=== PATIENT | male | born 1985 ===

== ENCOUNTER 2023-02-28 06:38 | Outpatient (CLI) | payer OTHER | END 2023-02-28 06:40 | disposition home or self-care (01) | LOC: LAB 06:38 | PROVIDERS: ATTEND Internal Medicine Hematology & Oncology | DX: D50.8 Other iron deficiency anemias (principal); I10 Essential (primary) hypertension; R74.02 Elevation of levels of lactic acid dehydrogenase [LDH]; K76.89 Other specified diseases of liver; D68.61 Antiphospholipid syndrome; E72.12 Methylenetetrahydrofolate reductase deficiency; C25.9 Malignant neoplasm of pancreas, unspecified; R97.8 Other abnormal tumor markers; I26.99 Other pulmonary embolism without acute cor pulmonale; E78.2 Mixed hyperlipidemia; G47.33 Obstructive sleep apnea (adult) (pediatric) ==

== ENCOUNTER 2023-06-18 07:42 | Outpatient (CLI) | payer OTHER | END 2023-06-18 07:43 | disposition home or self-care (01) | LOC: LAB 07:42 | PROVIDERS: ATTEND Internal Medicine Hematology & Oncology | DX: I26.99 Other pulmonary embolism without acute cor pulmonale (principal); E78.2 Mixed hyperlipidemia; G47.33 Obstructive sleep apnea (adult) (pediatric) ==

== ENCOUNTER → 2023-06-19 | Outpatient (CLI) | payer OTHER | END | disposition home or self-care (01) | LOC: TOM 08:49 | PROVIDERS: ATTEND Internal Medicine Hematology & Oncology | DX: D68.61 Antiphospholipid syndrome (principal); E72.12 Methylenetetrahydrofolate reductase deficiency; I26.99 Other pulmonary embolism without acute cor pulmonale; E78.2 Mixed hyperlipidemia | CPT/HCPCS: 71270; Q9965 ==

== ENCOUNTER → 2024-01-14 11:03 | Outpatient (CLI) | payer OTHER ==
[2024-01-14 12:10] LABS: HEMATOCRIT 42.1 % (39.0-48.0); HEMOGLOBIN 14.7 g/dL (13-16.00); MEAN CELL VOLUME 84.8 fL (80.0-100.00); MEAN CORPUSCULAR HEMOGLOBIN 29.6 pg (27.00-32.0); MEAN CORPUSCULAR HGB CONC 34.9 g/dl (32.0-36.0); PLATELET COUNT 290 K/uL (150-450); RED BLOOD COUNT 4.96 M/uL (4.00-6.00); RED CELL DISTRIBUTION WIDTH 13.3 % (11.5-14.5)
[2024-01-14 12:50] LABS: ALBUMIN 4.4 gm/dL (3.4-5.0); BILIRUBIN TOTAL 0.78 mg/dL (0.3-1.2); CALCIUM 10.1 mg/dL (8.5-10.1); CREATININE SERUM 1.02 mg/dL (0.70-1.30); GFR 81.31; GLOBULINA 3.2 G/DL (2.4-3.5); POTASSIUM 3.82 mEq/L (3.5-5.1); TOTAL PROTEIN 7.6 gm/dL (6.4-8.2)
[2024-01-14 12:59] LABS: MANUAL PLATELET COUNT 450
[2024-01-14 13:01] LABS: PLATELET ESTIMATE NORMAL (NORMAL)
[2024-01-14 13:20] LABS: FOLIC ACID > 20.00 ng/ml (4.78-20)
== END | disposition home or self-care (01) ==
LOC: LAB 11:03
PROVIDERS: ATTEND Internal Medicine Hematology & Oncology
DX: D50.8 Other iron deficiency anemias (principal); I10 Essential (primary) hypertension; R74.02 Elevation of levels of lactic acid dehydrogenase [LDH]; K76.89 Other specified diseases of liver; D51.8 Other vitamin B12 deficiency anemias; D68.59 Other primary thrombophilia; E72.11 Homocystinuria

== ENCOUNTER 2024-07-08 09:38 | Outpatient (CLI) | payer OTHER ==
[2024-07-08 10:26] LABS: HEMATOCRIT 38.1 % (39.0-48.0); HEMOGLOBIN 13.3 g/dL (13-16.00); MEAN CELL VOLUME 84.8 fL (80.0-100.00); MEAN CORPUSCULAR HEMOGLOBIN 29.5 pg (27.00-32.0); MEAN CORPUSCULAR HGB CONC 34.8 g/dl (32.0-36.0); PLATELET COUNT 233 K/uL (150-450); RED BLOOD COUNT 4.49 M/uL (4.00-6.00); RED CELL DISTRIBUTION WIDTH 14.2 % (11.5-14.5)
[2024-07-08 11:15] LABS: BILIRUBIN TOTAL 0.77 mg/dL (0.3-1.2); CALCIUM 9.1 mg/dL (8.5-10.1); CREATININE SERUM 1.16 mg/dL (0.70-1.30); GFR 70.09; GLOBULINA 3.4 G/DL (2.4-3.5); POTASSIUM 4.02 mEq/L (3.5-5.1); TOTAL PROTEIN 7.4 gm/dL (6.4-8.2)
[2024-07-08 12:16] LABS: FOLIC ACID > 20.00 ng/ml (4.78-20)
[2024-07-08 13:11] LABS: MANUAL PLATELET COUNT 500
[2024-07-08 13:12] LABS: PLATELET ESTIMATE NORMAL (NORMAL)
== END 2024-07-08 09:47 | disposition home or self-care (01) ==
LOC: LAB 09:38
PROVIDERS: ATTEND Internal Medicine Hematology & Oncology
DX: D68.61 Antiphospholipid syndrome (principal); I26.99 Other pulmonary embolism without acute cor pulmonale; I80.222 Phlebitis and thrombophlebitis of left popliteal vein; G47.33 Obstructive sleep apnea (adult) (pediatric); E78.2 Mixed hyperlipidemia; R79.9 Abnormal finding of blood chemistry, unspecified; D50.8 Other iron deficiency anemias; I10 Essential (primary) hypertension; R74.02 Elevation of levels of lactic acid dehydrogenase [LDH]; K76.89 Other specified diseases of liver; D51.8 Other vitamin B12 deficiency anemias

== ENCOUNTER → 2025-01-08 11:03 | Outpatient (CLI) | payer OTHER ==
[2025-01-08 12:18] LABS: HEMATOCRIT 41.9 % (39.0-48.0); HEMOGLOBIN 14.6 g/dL (13-16.00); MEAN CELL VOLUME 83.6 fL (80.0-100.00); MEAN CORPUSCULAR HEMOGLOBIN 29.2 pg (27.00-32.0); MEAN CORPUSCULAR HGB CONC 34.9 g/dl (32.0-36.0); PLATELET COUNT 259 K/uL (150-450); RED BLOOD COUNT 5.01 M/uL (4.00-6.00); RED CELL DISTRIBUTION WIDTH 14.1 % (11.5-14.5)
[2025-01-08 13:09] LABS: ALBUMIN 4.1 gm/dL (3.4-5.0); BILIRUBIN TOTAL 0.76 mg/dL (0.3-1.2); CALCIUM 9.4 mg/dL (8.5-10.1); CREATININE SERUM 1.1 mg/dL (0.70-1.30); GFR 74.14; GLOBULINA 3.4 G/DL (2.4-3.5); POTASSIUM 4.1 mEq/L (3.5-5.1); TOTAL PROTEIN 7.5 gm/dL (6.4-8.2)
[2025-01-08 14:02] LABS: FOLIC ACID > 20.00 ng/ml (4.78-20)
[2025-01-09 08:44] LABS: MANUAL PLATELET COUNT 394
[2025-01-09 08:45] LABS: PLATELET ESTIMATE NORMAL (NORMAL)
== END | disposition home or self-care (01) ==
LOC: LAB 11:03
PROVIDERS: ATTEND Internal Medicine Hematology & Oncology
DX: D50.8 Other iron deficiency anemias (principal); R79.9 Abnormal finding of blood chemistry, unspecified; I10 Essential (primary) hypertension; R74.02 Elevation of levels of lactic acid dehydrogenase [LDH]; K76.89 Other specified diseases of liver; D51.8 Other vitamin B12 deficiency anemias; D68.61 Antiphospholipid syndrome; I26.99 Other pulmonary embolism without acute cor pulmonale; I80.222 Phlebitis and thrombophlebitis of left popliteal vein; G47.33 Obstructive sleep apnea (adult) (pediatric); E78.2 Mixed hyperlipidemia